=== PATIENT | female | born 1945 | race Caucasian/White ===

== ENCOUNTER → 2016-07-30 | Outpatient (REF) ==
[~2016-07-30] MED LIST: ACTOS 45MG45 MG/TAB PO; ACTOS45 MG PO; ADVAIR 250/28 DISKUS IH; ADVAIR 500/28 DISKUS IH; ALPRAZOLAM0.25 MG PO; AMOXICILLIN 8751 TAB PO; AXID150 MG PO; CEFTIN500 MG PO; CRESTOR 10MG10 MG PO; IRON325 MG PO; LANTUS100 U/ML; LASIX 40MG TABL40 MG PO; LEXAPRO10 MG PO; LIPITOR40 MG PO; LISINOPRIL10 MG PO; MOBIC15 MG PO; NIZATIDINE150 MG PO; NOVOLOG FLEX100 U/ML SQ; OMEPRAZOLE20 MG PO; PRILOSEC 20MG20 MG PO; PRINIVIL20 MG PO; SYSTANE LUBRICAN5 ML; VICODIN 5/5001 UDTAB PO; VITAMIN D1000 IU PO
== END ==
LOC: ZLAB.WCH 10:25
DX: Z01.89 Encounter for other specified special examinations (principal)

== ENCOUNTER → 2017-04-05 | Outpatient (REF) | LOC: ZLAB.WCH 10:33 | DX: Z01.89 Encounter for other specified special examinations (principal) ==